=== PATIENT | female | born 1995 | race Caucasian/White ===

== ENCOUNTER 2020-12-12 11:29 | Emergency (ER) | payer BC, SELFPAY ==
[2020-12-12] VITALS (25 sets, daily range): BP systolic 104–153; BP diastolic 66–87; PULSE 63–106; RESP 14–27; TEMP 36.2–37; O2SAT 95–100
--- NOTE | ~2020-12-12 | CT_ITS ---
EXAMINATION: CT brain wo con DATE: 12/12/2020 12:31 INDICATION: Altered mental status. TECHNIQUE: Computed tomography (CT) of the head was performed without intravenous contrast. The mA wa s adjusted according to patient size. Iterative reconstruction technique was employed. The dose-lengt h product was 605.33 mGy-cm. COMPARISON: None FINDINGS: There is no intracranial hemorrhage, acute infarction, or abnormal intracranial mass lesion . The ventricles are normal in size. The paranasal sinuses are clear. The mastoid air cells are aleksandra l. The orbits are normal. IMPRESSION: 1. Normal brain. Reviewed, dictated and finalized at location A. IMPRESSION: 1. Normal brain.
--- NOTE | ~2020-12-12 | XR_ITS ---
EXAMINATION: XR chest 1V DATE: 12/12/2020 12:34 INDICATION: Syncope. TECHNIQUE: A single frontal view of the chest was obtained. COMPARISON: None. FINDINGS: There are airspace opacities in lingula. No pleural effusion or pneumothorax. The heart siz e is normal. IMPRESSION: 1. Airspace opacities in lingula, consistent with atelectasis versus pneumonia. Reviewed, dictated and finalized at location A.
--- NOTE | 2020-12-12 12:01 | PC.NURSE ---
Pt states she was diagnosed with seizures a year ago. States she does not take her Keppra because it makes her feel weird .
--- NOTE | 2020-12-12 12:14 | ED.GENADULT ---
HPI - General Adult General Chief complaint: Syncope Stated complaint: anxiety Time Seen by Provider: 12/12/20 12:02 Source: RN notes reviewed History of Present Illness HPI narrative: Patient presents to emergency department from work for possible syncopal episode. Patient states that since Wednesday she has been having several episodes where she becomes confused and does not remember what happened. States that during the episode she does not fall to the ground and she is not sure how many she is had or how long they last for patient states she does have a history of seizures that are epileptic in nature and states that she has not been taking her Keppra for the past 2 months. She states she felt like she was going to have have a seizure today so she took her Keppra she is supposed to be on patient is supposed to takes Keppra 750 mg twice a day she denies any fevers or chills, headache, vision changes chest pain shortness of breath or any other symptoms Related Data Allergies Allergy/AdvReac Type Severity Reaction Status Date / Time No Known Allergies Allergy Verified 12/12/20 11:59 Review of Systems Review of Systems: Gen.: Denies fevers or chills ENT: Denies congestion Respiratory: Denies shortness of breath or cough CV: Denies chest pain or palpitations GI: Denies abdominal pain nausea, emesis or diarrhea Musculoskeletal: Denies back pain or muscle pain Neuro: HPI Skin: Denies rash Except as documented, all other systems reviewed and negative [facility] Past Medical History Medical History (Updated 12/12/20 @ 14:39 by Ras Hunter DO) Seizures Social History Social History (Updated 12/12/20 @ 12:15 by Ras Hunter DO) Smoking status: Never smoker Exam Narrative: APPEARANCE: No acute distress, nontoxic, resting in bed EYES: EOMI, PERRL HEENT: Normocephalic, atraumatic, OMM RESPIRATORY: No respiratory distress Clear to auscultation bilaterally with no rhonchi wheezing or rales. CARDIOVASCULAR: Regular rate and rhythm without murmurs rubs or gallops. ABDOMINAL: Soft, nontender, nondistended, no rebound or guarding MUSCULOSKELETAl: Moves all extremities. No clubbing, cyanosis or edema. NEURO: Awake and alert x 4. Following commands, speech normal, no focal deficits SKIN:: Warm, dry. No rashes lesions or abrasions PSYCHIATRIC: Normal affect/mood, Course Course Emergency Course: Reviewed the patient's chest x-ray patient has no white count she has no cough believe this to be atelectasis Patient has remained awake and alert x4 in the emergency department family is present states the patient did have a shaking episode today that does sound like a seizure I believe the patient is having seizures that are causing his episodes that she has not taken her Keppra 750 mg twice a day for the past 2 months she did take a dose this morning and I will prescribe medication for her at home believe the patient can be discharged at this time Discussed with patient results of workup and diagnosis. Discussed need for follow-up with primary care, proper use of medication, and reasons to return to the emergency department. Patient understands and agrees to current treatment plan Vital Signs Vital signs: Vital Signs Temperature 98.6 F 12/12/20 11:35 Pulse Rate 95 12/12/20 11:35 Respiratory Rate 16 12/12/20 11:35 Blood Pressure 153/87 H 12/12/20 11:35 Pulse Oximetry 100 12/12/20 11:35 Temperature 98.6 F 12/12/20 11:35 Pulse Rate 106 H 12/12/20 12:01 Respiratory Rate 23 H 12/12/20 11:54 Blood Pressure 109/66 12/12/20 11:54 Pulse Oximetry 95 12/12/20 11:54 Medical Decision Making MDM Narrative Medical decision making narrative: Patient with episodes of feeding she does not remember what happened over the past several days the patient supposed to be on Keppra 750 mg twice a day which she has not taken for the past 2 months. She states he secondary to seizures. Family is present patient had episod
--- NOTE | 2020-12-12 12:14 | ECG_ITS ---
Measurements Intervals [place] Rate: 65 P: 30 MS: 138 QRS: 10 QRSD: 96 T: 18 QT: 371 QTc: 386 Interpretive Statements SINUS RHYTHM WITH SINUS ARRHYTHMIA LOW QRS VOLTAGE IN PRECORDIAL LEADS INCOMPLETE RIGHT BUNDLE BRANCH BLOCK BORDERLINE ECG Electronically Signed On 12-12-2020 13:40:18 CDT by Abimael Fisher D.O.
[2020-12-12 13:00] LABS: Basophils Absolute Auto 0.1 K/mm3 (0.0-0.1); Basophils Percent Auto 0.7 % (0.2-1.2); Eosinophils Percent Auto 0.1 % (0-4.4); Hematocrit 39.1 % (37.0-47.0); Immature Granulocyte Absolute 0.01 K/mm3 (0.00-0.031); Immature Granulocyte Percent A 0.1 % (0-0.5); Lymphocytes Absolute Auto 2.27 K/mm3 (0.9-3.2); Lymphocytes Percent Auto 29.6 % (18.3-44.2); Mean Corpuscular HGB Conc 33.2 g/dl (32-36); Mean Corpuscular Hemoglobin 30.2 pg (26-34); Mean Corpuscular Volume 90.7 fl (80-100); Mean Platelet Volume 9.8 fl (7.4-10.4); Monocytes Absolute Auto 0.5 K/mm3 (0.1-0.6); Monocytes Percent Auto 6.9 % (2.6-8.5); Neutrophils Absolute Auto 4.8 K/mm3 (1.3-6.7); Neutrophils Percent Auto 62.6 % (45.5-73.1); Platelet Count Result 317 k/mm3 (150-375); Red Blood Count 4.31 M/mm3 (4.2-5.4); Red Cell Distribution Width 12.7 % (11.5-14.5); White Blood Count 7.7 K/mm3 (4.5-10.0)
[2020-12-12 13:15] LABS: Alanine Aminotransferase 16 U/L (4-35); Albumin Level 4.6 g/dL (3.5-5.1); Alkaline Phosphatase 61 U/L (38-126); Anion Gap 6 mmol/L (8-16); Aspartate Amino Transferase 21 U/L (14-36); Bilirubin,Total 0.4 mg/dL (0.2-1.3); Blood Urea Nitrogen 13 mg/dL (7-17); Calcium 9.3 mg/dL (8.4-10.2); Carbon Dioxide 30 mmol/L (22-30); Chloride 105 mmol/L (98-107); Estimated CRCL calculation 106 ml/min; Estimated Glomerular Filt Rate > 60; Glucose 83 mg/dL (65-110); Potassium 3.5 mmol/L (3.4-5.0); Sodium 141 mmol/L (137-145)
[2020-12-12 13:20] LABS: Troponin I < 0.012 ng/mL (0.000-0.034)
[2020-12-12 14:11] LABS: Add Urine Microscopic? YES; Appearance Urine Cloudy (Clear); Bacteria Urine Trace /hpf; Bilirubin Urine Negative (Negative); Blood Urine Negative (Negative); Color Urine Yellow (Yellow); Glucose Urine UA Negative (Negative); Ketones Urine Negative (Negative); Leukocyte Esterase Ur 1+ LEU/UL (Negative); Mucus Urine Moderate /lpf; Nitrate Urine Negative (Negative); Protein Urine 1+ mg/dL (Negative); Specific Grav Ur 1.019 (1.001-1.035); Squamous Epithelial Cell Urine Many /hpf (Few); Urobilinogen Urine Negative mg/dL (<2.0); WBC Urine 0-3 /hpf
[2020-12-12 14:14] LABS: Amphetamine Screen Urine Negative (Negative); Barbiturate Screen Urine Negative (Negative); Benzodiazepines Screen Urine Negative (Negative); Cannabinoid Screen Urine Negative (Negative); Cocaine Screen Urine Negative (Negative); Methadone Screen Urine Negative (Negative); Opiate Screen Urine Negative (Negative); Phencyclidine Screen Urine Negative (Negative)
== END 2020-12-12 15:22 | disposition home or self-care (01) ==
PROVIDERS: Emergency Provider Emergency Medicine
DX: G40.909 Epilepsy, unspecified, not intractable, without status epilepticus (principal); R91.8 Other nonspecific abnormal finding of lung field; I45.10 Unspecified right bundle-branch block; Z91.14 Patient's other noncompliance with medication regimen
CPT/HCPCS: 36415; 70450; 71045; 80053; 80307; 81001; 81025; 84484; 85025; 93005; 99284

== ENCOUNTER 2021-10-13 23:01 | Emergency (ER) | payer BC, SELFPAY ==
--- NOTE | ~2021-10-13 | XR_ITS ---
EXAMINATION: XR chest 2V DATE: 10/14/2021 00:11 INDICATION: Chest pain. Seizure. TECHNIQUE: Frontal and lateral views of the chest were obtained. COMPARISON: Chest single view 12/12/2020 FINDINGS: The chest demonstrates clear lungs without pneumonia, pleural effusion, or pneumothorax. Th e heart size is normal. IMPRESSION: 1. No acute cardiopulmonary disease. Reviewed, dictated and finalized at location A.
--- NOTE | ~2021-10-13 | CT_ITS ---
EXAMINATION: CT brain wo con DATE: 10/14/2021 00:03 INDICATION: Seizure. TECHNIQUE: Computed tomography (CT) of the head was performed without intravenous contrast. The mA wa s adjusted according to patient size. Iterative reconstruction technique was employed. The dose-lengt h product was 605.33 mGy-cm. COMPARISON: Head CT 12/12/2020 FINDINGS: There is no intracranial hemorrhage, acute infarction, or abnormal intracranial mass lesion . The ventricles are normal in size. Vertebral body heights are normal. The paranasal sinuses are katty ar. The mastoid air cells are normal. IMPRESSION: 1. Normal brain. Reviewed, dictated and finalized at location A. IMPRESSION: 1. Normal brain.
[2021-10-13 23:05] VITALS: PULSE 137; RESP 18; TEMP 36.5; O2SAT 100
--- NOTE | 2021-10-13 23:15 | ECG_ITS ---
Measurements Intervals [place] Rate: 110 P: 45 [place]: 131 QRS: 24 QRSD: 100 T: 31 QT: 297 QTc: 403 Interpretive Statements SINUS TACHYCARDIA LOW QRS VOLTAGE IN PRECORDIAL LEADS [QRS DEFLECTION < 1.0 mV IN CHEST LEADS] INCOMPLETE RIGHT BUNDLE BRANCH BLOCK [90+ ms QRS DURATION, TERMINAL R IN V1/V2, 40+ ms S IN I/aVL/V4/V5/V6] ABNORMAL RHYTHM ECG COMPARED TO ECG 12/12/2020 13:22:48 SINUS TACHYCARDIA NOW PRESENT Electronically Signed On 10-14-2021 16:28:12 CDT by Noemi Johnson M.D.
[2021-10-13 23:25] VITALS: O2SAT 100
--- NOTE | 2021-10-13 23:30 | ED.SEIZURE ---
HPI - Seizure General Chief Complaint: Seizure <ALVIN Patel Last Filed: 10/14/21 02:47> Stated Complaint: SEIZURE <ALVIN Patel Last Filed: 10/14/21 02:47> Time Seen by Provider: 10/13/21 23:12 <ALVIN Patel Last Filed: 10/14/21 02:47> Source: patient and EMS <ALVIN Patel Last Filed: 10/14/21 02:47> Mode of arrival: EMS <ALVIN Patel Last Filed: 10/14/21 02:47> Limitations: other (patient does not remember incident) <ALVIN Patel Last Filed: 10/14/21 02:47> History of Present Illness HPI Narrative: This is a 26-year-old female that presents to the emergency department after a possible seizure today. Reports she only remembers going into the bathroom and vomiting. She was found by another employee seizing. Reports history of seizures. She has not been taking her antiepileptic medication. Reports some chest pain. Denies shortness of breath, vision changes, or focal numbness or weakness. <ALVIN Patel Last Filed: 10/14/21 02:47> Seizure History: Yes <ALVIN Patel Last Filed: 10/14/21 02:47> Related Data Allergies/Adverse Reactions: Allergies Allergy/AdvReac Type Severity Reaction Status Date / Time No Known Allergies Allergy Verified 10/13/21 23:27 <ALVIN Patel Last Filed: 10/14/21 02:47> Review of Systems Review of Systems: CONSTITUTIONAL: Denies fever EYES: Denies visual changes CARDIOVASCULAR: Reports chest pain RESPIRATORY: Denies dyspnea. GASTROINTESTINAL: Reports vomiting NEUROLOGIC: Denies headache, numbness, or weakness. <ALVIN Patel Last Filed: 10/14/21 02:47> All systems reviewed & are unremarkable except as noted in HPI and below <ALVIN Patel Last Filed: 10/14/21 02:47> [facility] Past Medical History Medical History: Medical History (Updated 10/14/21 @ 02:22 by Claire Feliciano PA-C) Seizures <Claire Feliciano PA-C - Last Filed: 10/14/21 02:47> Social History Social History: Social History (Updated 12/12/20 @ 12:15 by Ras Hunter DO) Smoking status: Never smoker <Claire Feliciano PA-C - Last Filed: 10/14/21 02:47> Exam Narrative: GENERAL: Well-appearing, well-nourished, and in no acute distress. HEAD: Normocephalic, atraumatic. EYES: PERRLA and EOMI. ENT: Nares clear, no rhinorrhea or epistaxis. Mucous membranes moist. Oropharynx without tonsillar hypertrophy exudate or other lesions. Bilateral TMs pearly fisher non-bulging NECK: Supple. No adenopathy or masses. CHEST: Clear to auscultation. No respiratory distress. No wheezes rales or rhonchi. Tender to palpation of mid chest wall HEART: Regular rate and rhythm. No murmur heard. Normal peripheral pulses. ABDOMEN: Soft, nontender, nondistended, normal active bowel sounds. EXTREMITIES: Normal range of motion. No edema or obvious deformity. SKIN: Warm, dry, no rash. NEURO: No focal deficits. Alert and oriented x3. Cranial nerves II through XII grossly intact PSYCH: Normal mood and affect <Claire Feliciano PA-C - Last Filed: 10/14/21 02:47> Course BINDERY MACHINE TENDER/PA Physician Supervision For this patient encounter, I reviewed the BINDERY MACHINE TENDER or PA documentation, treatment plan, and medical decision making <Paresh Soriano MD - Last Filed: 10/14/21 03:53> Vital Signs Vital signs: Vital Signs Temperature 97.7 F 10/13/21 23:05 Pulse Rate 137 H 10/13/21 23:05 Respiratory Rate 18 10/13/21 23:05 Pulse Oximetry 100 10/13/21 23:05 Oxygen Delivery Room Air 10/13/21 23:05 Temperature 97.7 F 10/13/21 23:05 Pulse Rate 79 10/14/21 02:53 Respiratory Rate 16 10/14/21 02:53 Blood Pressure 95/55 L 10/14/21 02:53 Pulse Oximetry 98 10/14/21 02:53 Oxygen Delivery Room Air 10/13/21 23:05 <Claire Feliciano PA-C - Last Filed: 10/14/21 02:47> Vital Signs Temperature 97.7 F 10/13/21 23:05 Pulse Rate 137 H
[2021-10-13 23:31] VITALS: PULSE 115; O2SAT 100
[2021-10-13] MEDS: SODIUM CHLORIDE 0.9% IV 1,000 ML 999 ML IV CONT (23:40)
[2021-10-13] MEDS: levETIRAcetam 1000MG/NACL100ML 1,000 MG/100 ML BAG 400 MG IVPB (23:41)
[2021-10-13 23:44] LABS: Basophils Absolute Auto 0.1 K/mm3 (0.0-0.1); Basophils Percent Auto 0.5 % (0.2-1.2); Eosinophils Percent Auto 0.1 % (0-4.4); Hemoglobin 13.9 g/dL (12.0-15.0); Immature Granulocyte Absolute 0.03 K/mm3 (0.00-0.031); Immature Granulocyte Percent A 0.3 % (0-0.5); Lymphocytes Absolute Auto 2.94 K/mm3 (0.9-3.2); Lymphocytes Percent Auto 24.9 % (18.3-44.2); Mean Corpuscular HGB Conc 33.1 g/dl (32-36); Mean Corpuscular Volume 87.7 fl (80-100); Mean Platelet Volume 9.5 fl (7.4-10.4); Monocytes Absolute Auto 0.8 K/mm3 (0.1-0.6); Monocytes Percent Auto 6.3 % (2.6-8.5); Neutrophils Percent Auto 67.9 % (45.5-73.1); Platelet Count Result 362 k/mm3 (150-375); Red Blood Count 4.79 M/mm3 (4.2-5.4); Red Cell Distribution Width 12.3 % (11.5-14.5); White Blood Count 11.8 K/mm3 (4.5-10.0)
[2021-10-13 23:45] VITALS: PULSE 89; RESP 20
[2021-10-13 23:54] LABS: INR 1.1; Prothrombin Time 13.5 Seconds (11.1-14.7)
[2021-10-13 23:55] LABS: Partial Thromboplastin Time 26.2 SECONDS (22.3-36.8)
--- NOTE | 2021-10-13 23:57 | PC.NURSE ---
Pt here c ems who report called for seizure. Pt reports hx of seizure, last took keppra 750 mg PO a few days ago . Last saw neuro 6 months ago in [place], [place]. No local provider. Reports she thinks her keppra dose was too high and that's why she stopped taking it. Seizure 2 weeks ago as well. Appears anxious on arrival. Placed on cardiac/bp/O2 monitor.
[2021-10-13 23:58] LABS: Alanine Aminotransferase 23 U/L (6-35); Albumin Level 4.7 g/dL (3.5-5.1); Alkaline Phosphatase 80 U/L (38-126); Anion Gap 11 mmol/L (8-16); Aspartate Amino Transferase 31 U/L (14-36); Bilirubin,Total 0.3 mg/dL (0.2-1.3); Blood Urea Nitrogen 11 mg/dL (7-17); Calcium 9.5 mg/dL (8.4-10.2); Carbon Dioxide 27 mmol/L (22-30); Chloride 99 mmol/L (98-107); Estimated CRCL calculation 106 ml/min; Estimated Glomerular Filt Rate > 60; Glucose 94 mg/dL (65-110); Potassium 3.7 mmol/L (3.4-5.0); Sodium 137 mmol/L (137-145)
[2021-10-14] VITALS (9 sets, daily range): BP systolic 95–105; BP diastolic 52–57; PULSE 79–99; RESP 16–24; O2SAT 97–100
[2021-10-14 00:14] LABS: Ethanol < 10 mg/dL (<10)
[2021-10-14 00:29] LABS: Troponin I 0.024 ng/mL (0.000-0.034)
[2021-10-14 01:45] LABS: Add Urine Microscopic? YES; Appearance Urine Clear (Clear); Bilirubin Urine Negative (Negative); Blood Urine Negative (Negative); Color Urine Yellow (Yellow); Glucose Urine UA Negative (Negative); Ketones Urine Negative (Negative); Leukocyte Esterase Ur Trace LEU/UL (Negative); Nitrate Urine Negative (Negative); Protein Urine Trace mg/dL (Negative); Urobilinogen Urine 0.2 mg/dL (<2.0); pH Urine 7.5 (5.0-9.0)
[2021-10-14 01:49] LABS: Bacteria Urine Trace /hpf; Mucus Urine Rare /lpf; Squamous Epithelial Cell Urine Many /hpf (Few)
[2021-10-14 02:02] LABS: Amphetamine Screen Urine Negative (Negative); Barbiturate Screen Urine Negative (Negative); Benzodiazepines Screen Urine Negative (Negative); Cannabinoid Screen Urine Negative (Negative); Cocaine Screen Urine Negative (Negative); Methadone Screen Urine Negative (Negative); Opiate Screen Urine Negative (Negative); Phencyclidine Screen Urine Negative (Negative)
--- NOTE | 2021-10-14 03:03 | PC.NURSE ---
Patient refusing to wake up to get discharge instructions at this time. This RN will make another attempt to discharge this patient
== END 2021-10-14 03:35 | disposition home or self-care (01) ==
PROVIDERS: Physician Assistant; Emergency Provider Emergency Medicine
DX: G40.909 Epilepsy, unspecified, not intractable, without status epilepticus (principal); T42.6X6A Underdosing of other antiepileptic and sedative-hypnotic drugs, initial encounter; Z91.138 Patient's unintentional underdosing of medication regimen for other reason
CPT/HCPCS: 36415; 70450; 71046; 80053; 80307; 81001; 81025; 84484; 85025; 85610; 85730; 87086; 87088; 93005; 96365; 99284; J0131; J1953; J7030

== ENCOUNTER 2021-11-24 22:07 | Emergency (ER) | payer OTHER, BC, SELFPAY ==
--- NOTE | ~2021-11-24 | XR_ITS ---
EXAMINATION: XR hand LT min 3V DATE: 11/25/2021 00:00 INDICATION: Left hand pain. TECHNIQUE: 3 views of left hand were obtained. COMPARISON: None. FINDINGS: Bone alignment is normal. No fracture. Joint spaces are normal. IMPRESSION: 1. Normal left hand. Reviewed, dictated and finalized at location A. IMPRESSION: 1. Normal left hand.
--- NOTE | ~2021-11-24 | XR_ITS ---
EXAMINATION: XR chest 1V portable Exam Date/Time: 11/24/2021 22:45 CDT HISTORY: syncope Comparison: None available. RESULT: Lines, tubes, and devices: None. Lungs and pleura: Ill-defined, hazy bilateral lower lung airspace/groundglass opacities. Cardiomediastinal silhouette: Stable. Other: No acute osseous or upper abdominal finding. IMPRESSION: Bibasilar opacities may represent atelectasis or infection, including atypical/viral etiologies. Reviewed, dictated and finalized at location K. IMPRESSION: Bibasilar opacities may represent atelectasis or infection, including atypical/ viral etiologies.
[2021-11-24 22:05] VITALS: BP 134/115; O2SAT 94
--- NOTE | 2021-11-24 22:18 | ECG_ITS ---
Measurements Intervals [place] Rate: 124 P: 4 DE: 142 QRS: 23 QRSD: 103 T: 26 QT: 294 QTc: 423 Interpretive Statements SINUS TACHYCARDIA INCOMPLETE RIGHT BUNDLE BRANCH BLOCK ABNORMAL ECG COMPARED TO ECG 10/13/2021 23:27:22 NO SIGNIFICANT CHANGES Electronically Signed On 11-25-2021 6:48:39 CDT by Abimael Fisher D.O.
[2021-11-24 22:32] LABS: Glucose Point of Care 88 mg/dl (65-105)
[2021-11-24] MEDS: SODIUM CHLORIDE 0.9% IV 1,000 ML 999 ML IV CONT (22:36)
[2021-11-24 23:14] VITALS: BP 124/74; PULSE 94; RESP 25
[2021-11-24 23:16] VITALS: BP 119/76; PULSE 95; RESP 23
[2021-11-24 23:38] LABS: Appearance Urine Cloudy (Clear); Bilirubin Urine Negative (Negative); Color Urine Yellow (Yellow); Glucose Urine UA Trace mg/dL (Negative); Ketones Urine Negative (Negative); Leukocyte Esterase Ur Negative LEU/UL (Negative); Nitrate Urine Negative (Negative); Protein Urine Negative (Negative); Specific Grav Ur 1.015 (1.001-1.035); Urobilinogen Urine 0.2 mg/dL (<2.0); pH Urine 7.5 (5.0-9.0)
[2021-11-24 23:39] LABS: Add Urine Microscopic? YES; Blood Urine Trace-Intact (Negative)
[2021-11-24 23:42] LABS: Bacteria Urine Trace /hpf; Squamous Epithelial Cell Urine Many /hpf (Few); WBC Urine 0-3 /hpf
[2021-11-25 00:25] VITALS: BP 129/75; PULSE 88; RESP 16; O2SAT 98
[2021-11-25 00:35] LABS: Basophils Absolute Auto 0.1 K/mm3 (0.0-0.1); Basophils Percent Auto 0.5 % (0.2-1.2); Eosinophils Percent Auto 0.2 % (0-4.4); Hematocrit 38.6 % (37.0-47.0); Hemoglobin 12.7 g/dL (12.0-15.0); Immature Granulocyte Absolute 0.03 K/mm3 (0.00-0.031); Immature Granulocyte Percent A 0.2 % (0-0.5); Lymphocytes Absolute Auto 2.47 K/mm3 (0.9-3.2); Mean Corpuscular HGB Conc 32.9 g/dl (32-36); Mean Corpuscular Hemoglobin 29.6 pg (26-34); Mean Platelet Volume 9.9 fl (7.4-10.4); Monocytes Absolute Auto 0.9 K/mm3 (0.1-0.6); Monocytes Percent Auto 7.2 % (2.6-8.5); Neutrophils Absolute Auto 9.5 K/mm3 (1.3-6.7); Neutrophils Percent Auto 72.9 % (45.5-73.1); Platelet Count Result 314 k/mm3 (150-375); Red Blood Count 4.29 M/mm3 (4.2-5.4); Red Cell Distribution Width 12.4 % (11.5-14.5)
[2021-11-25 00:48] LABS: Magnesium 1.8 mg/dL (1.6-2.3)
[2021-11-25 00:50] LABS: Anion Gap 14 mmol/L (8-16); Blood Urea Nitrogen 11 mg/dL (7-17); Calcium 8.1 mg/dL (8.4-10.2); Carbon Dioxide 24 mmol/L (22-30); Chloride 105 mmol/L (98-107); Estimated Glomerular Filt Rate > 60; Glucose 84 mg/dL (65-110); Potassium 3.6 mmol/L (3.4-5.0); Sodium 143 mmol/L (137-145)
[2021-11-25 01:30] VITALS: BP 126/74; PULSE 83; RESP 23; O2SAT 98
--- NOTE | 2021-11-25 01:31 | ED.GENADULT ---
HPI - General Adult General Chief complaint: Syncope Stated complaint: SYNCOPE/SZ? Time Seen by Provider: 11/24/21 22:18 History of Present Illness HPI narrative: This is a 26-year-old female with history of seizures presenting to ED after seizure. Patient says she was at work when she started to feel nauseous. She then went to the bathroom and woke up on the floor of the bathroom. She was then brought to the emergency department for further evaluation. Patient says that she typically gets nauseous when she has seizures. She takes her Keppra intermittently. She missed a dose earlier today. Patient is complaining of some pain in her hand. She denies any other complaints. Related Data Home Medications Medication Instructions Recorded Confirmed levetiracetam 500 mg tablet mg PO 11/25/21 Allergies Allergy/AdvReac Type Severity Reaction Status Date / Time latex Allergy Rash Verified 11/25/21 00:28 Review of Systems Review of Systems: CONSTITUTIONAL: Denies night sweats. EYES: No eye pain ENT: Denies rhinorrhea CARDIOVASCULAR: Denies palpitations RESPIRATORY: Denies hemoptysis GASTROINTESTINAL: Denies hematemesis GENITOURINARY: Denies hematuria. SKIN: Denies rash MUSCULOSKELETAL: Denies myalgia. NEUROLOGIC: Denies weakness. PSYCHIATRIC: Denies delusions PMFSH Past Medical History Medical History Seizures Social History Social History Smoking status: Never smoker Exam Narrative: APPEARANCE: No apparent distress. Head atraumatic. EYES: PERRLA/EOMI, NOSE: Normal no drainage NECK: Supple, Trachea midline RESPIRATORY: CTAB, No increased work of breathing. CARDIOVASCULAR: S1S2 appreciated ABDOMINAL: Soft, nontender, nondistended, MUSCULOSKELETAl: No obvious deformities, Patient has some mild swelling over her left hand. There is no focal point tenderness. Bull Bucker strength is intact. Cap refills less than 2 seconds. There is no overlying bruising or edema. NEURO: Alert. Moving 4/4 extremities SKIN:: Warm, dry. Normal color PSYCHIATRIC: Normal affect Course Vital Signs Vital signs: Vital Signs Blood Pressure 134/115 H 11/24/21 22:05 Pulse Oximetry 94 11/24/21 22:05 Pulse Rate 88 11/25/21 00:25 Respiratory Rate 16 11/25/21 00:25 Blood Pressure 129/75 11/25/21 00:25 Pulse Oximetry 98 11/25/21 00:25 Medical Decision Making MDM Narrative Medical decision making narrative: This is a 26-year-old female presenting the ED with chief complaint of seizures. Patient has well-documented history of not being compliant with her Keppra. She has missed doses today. Patient's seizure experience with her typical experienced today. Patient's laboratory evaluation was unremarkable. Chest x-ray showed bibasilar atelectasis but no other acute findings. Hand x-ray as interpreted by myself was negative for any acute osseous injuries. On re-evaluation patient is back to baseline mental status. She is ready to go home. She will be discharged home with a referral for Neurology and primary care. She has been provided scripts for Keppra, Motrin and Tylenol. Vital Signs Vital Signs: Vital Signs Blood Pressure 134/115 H 11/24/21 22:05 Pulse Oximetry 94 11/24/21 22:05 Pulse Rate 88 11/25/21 00:25 Respiratory Rate 16 11/25/21 00:25 Blood Pressure 129/75 11/25/21 00:25 Pulse Oximetry 98 11/25/21 00:25 Lab Data Result diagrams: 11/25/21 00:20 11/25/21 00:20 Labs: Lab Results 11/24/21 11/24/21 11/25/21 Range/Units 22:30 23:15 00:20 WBC 13.0 H (4.5-10.0) K/mm3 RBC 4.29 (4.2-5.4) M/mm3 Hgb 12.7 (12.0-15.0) g/dL Hct 38.6 (37.0-47.0) % MCV 90.0 (80-100) fl MCH 29.6 (26-34) pg MCHC 32.9 (32-36) g/dl RDW 12.4 (11.5-14.5) % Plt Count 314 (150-375) k/mm3 MPV
== END 2021-11-25 01:30 | disposition home or self-care (01) ==
PROVIDERS: Emergency Provider Emergency Medicine
DX: G40.909 Epilepsy, unspecified, not intractable, without status epilepticus (principal); T42.6X6A Underdosing of other antiepileptic and sedative-hypnotic drugs, initial encounter; Z91.128 Patient's intentional underdosing of medication regimen for other reason; M79.642 Pain in left hand; R00.0 Tachycardia, unspecified; I45.10 Unspecified right bundle-branch block
CPT/HCPCS: 36415; 71045; 73130; 80048; 81001; 81025; 82948; 83735; 85025; 93005; 96360; 96361; 99284; J7030

== ENCOUNTER 2022-05-18 17:12 | Emergency (ER) | payer BC, SELFPAY ==
[2022-05-18] VITALS (14 sets, daily range): BP systolic 114–129; BP diastolic 82–96; PULSE 64–115; RESP 15–30; O2SAT 96–100
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
--- NOTE | ~2022-05-18 | CT_ITS ---
EXAMINATION: CT cervical spine wo con DATE: 05/18/2022 19:11 INDICATION: fall TECHNIQUE: Computed tomography (CT) of the cervical spine was performed without intravenous contrast. Automated exposure control and iterative reconstruction technique were employed. The dose-length pro duct was 407.33 mGy-cm. COMPARISON: None. FINDINGS: Vertebral Body Alignment: Intact. . Craniocervical and atlantoaxial alignment: No significant degenerative change. Alignment intact. Osseous structures/fracture: No evidence of a lytic or blastic process in the visualized spine. No e vidence of acute fracture. . Cervical soft tissues: The paraspinal soft tissues planes are maintained. Degenerative changes: No significant degenerative changes. IMPRESSION: No acute fracture or traumatic malalignment in the cervical spine. Reviewed, dictated and finalized at location K.
--- NOTE | 2022-05-18 17:11 | PC.NURSE ---
Per EMS patient is non compliant with medications due to not liking the way it makes her feel . Patient states her las seizure before today was 3 months ago. Patient is supposed to take Levetiracetam daily, but states she only takes it about once a week.
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
[2022-05-18 17:48] LABS: Basophils Absolute Auto 0.1 K/mm3 (0.0-0.1); Basophils Percent Auto 0.5 % (0.2-1.2); Eosinophils Percent Auto 0.2 % (0-4.4); Hematocrit 40.4 % (37.0-47.0); Hemoglobin 13.4 g/dL (12.0-15.0); Immature Granulocyte Absolute 0.03 K/mm3 (0.00-0.031); Immature Granulocyte Percent A 0.3 % (0-0.5); Lymphocytes Absolute Auto 1.69 K/mm3 (0.9-3.2); Lymphocytes Percent Auto 16.7 % (18.3-44.2); Mean Corpuscular HGB Conc 33.2 g/dl (32-36); Mean Corpuscular Hemoglobin 29.4 pg (26-34); Mean Corpuscular Volume 88.6 fl (80-100); Mean Platelet Volume 9.6 fl (7.4-10.4); Monocytes Absolute Auto 0.5 K/mm3 (0.1-0.6); Monocytes Percent Auto 5.1 % (2.6-8.5); Neutrophils Absolute Auto 7.8 K/mm3 (1.3-6.7); Neutrophils Percent Auto 77.2 % (45.5-73.1); Platelet Count Result 342 k/mm3 (150-375); Red Blood Count 4.56 M/mm3 (4.2-5.4); Red Cell Distribution Width 12.3 % (11.5-14.5); White Blood Count 10.1 K/mm3 (4.5-10.0)
[2022-05-18 17:57] LABS: Alanine Aminotransferase 24 U/L (6-35); Albumin Level 4.7 g/dL (3.5-5.1); Alkaline Phosphatase 74 U/L (38-126); Anion Gap 5 mmol/L (8-16); Aspartate Amino Transferase 23 U/L (14-36); Bilirubin,Total 0.4 mg/dL (0.2-1.3); Blood Urea Nitrogen 15 mg/dL (7-17); Carbon Dioxide 29 mmol/L (22-30); Chloride 102 mmol/L (98-107); Estimated Glomerular Filt Rate > 60; Glucose 89 mg/dL (65-110); Potassium 3.8 mmol/L (3.4-5.0); Sodium 136 mmol/L (137-145)
[2022-05-18] MEDS: SODIUM CHLORIDE 0.9% IV 1,000 ML 999 ML IV CONT (18:39)
[2022-05-18] MEDS: KETOROLAC 15 MG/ML VIAL (*BKC) IV PUSH (18:40)
[2022-05-18] MEDS: levETIRAcetam 1000MG/NACL100ML 1,000 MG/100 ML BAG 400 MG IVPB (18:43)
[2022-05-18 19:16] LABS: Appearance Urine Clear (Clear); Bacteria Urine None Seen /hpf; Bilirubin Urine Negative (Negative); Blood Urine Negative (Negative); Color Urine Yellow (Yellow); Glucose Urine UA Negative (Negative); Hyaline Casts Urine Present /lpf; Ketones Urine Negative (Negative); Leukocyte Esterase Ur 1+ LEU/UL (Negative); Need Manual Microscopic Reviewed; Nitrate Urine Negative (Negative); Non Pathogenic Casts 0-2; Protein Urine Negative (Negative); Specific Grav Ur 1.021 (1.001-1.035); Squamous Epithelial Cell Urine Few /hpf (Few); WBC Urine 0-5 /hpf
[2022-05-18 19:17] LABS: Add Urine Microscopic? YES; Amphetamine Screen Urine Negative (Negative); Barbiturate Screen Urine Negative (Negative); Benzodiazepines Screen Urine Negative (Negative); Cannabinoid Screen Urine Negative (Negative); Cocaine Screen Urine Negative (Negative); Methadone Screen Urine Negative (Negative); Opiate Screen Urine Negative (Negative); Phencyclidine Screen Urine Negative (Negative)
== END 2022-05-18 21:51 | disposition home or self-care (01) ==
PROVIDERS: Emergency Provider Emergency Medicine
DX: G40.909 Epilepsy, unspecified, not intractable, without status epilepticus (principal); Z91.14 Patient's other noncompliance with medication regimen
CPT/HCPCS: 36415; 70450; 72125; 72128; 72131; 80053; 80307; 81001; 85025; 93005; 96361; 96365; 96367; 96375; 99284; J0131; J1885; J1953; J7030